=== PATIENT | female | born 1970 | race African-American/Black ===

== ENCOUNTER 2018-03-06 17:42 | Emergency (ER) | payer BC ==
[~2018-03-06] VITALS: Ht 162.6 cm; Wt 82.6 kg
[~2018-03-06 17:42] MED LIST: CIPROFLOXACIN500 M1 PO; IBUPROFEN 600600 M1 PO; MACROBID 100 M100 M1 PO; MEDROL DOSPAK21 TAB PO; NOHOMEMEDICATIONS; NORCO 5-325 TA1 EACH PO; PHENERGAN 25 MG25 M1 PO; TRAMADOL 50 MG50 MG PO; ZOFRAN ODT4 MG PO
[2018-03-06 19:14] LABS: ABSOLUTE NEUTROPHILS 5.6 thou/uL (1.4-8.2); BASOPHILS 0.8 % (0.0-2.0); EOSINOPHILS 3.1 % (0.0-3.0); HEMATOCRIT 32.3 % (37.0-47.0); HEMOGLOBIN 10.3 gm/dL (12.0-15.0); LYMPHOCYTES 22.4 % (24.0-44.0); MCH 21.3 pg (26.0-34.0); MCHC 31.8 g/dL (28.0-37.0); MCV 67.2 fL (80.0-100.0); MONOCYTES 7.8 % (1.0-8.0); PLATELET COUNT 308 thou/uL (150-400); POLYS 65.9 % (36.0-66.0); RDW 17.5 % (10.5-14.5); WBC 8.6 thou/uL (4.0-11.0)
[2018-03-06 19:25] LABS: CALCIUM 8.6 mg/dL (8.5-10.1); CREATININE 0.6 mg/dL (0.6-1.0); POTASSIUM 3.4 mmol/L (3.5-5.1)
[2018-03-06 19:43] LABS: URINE BILIRUBIN NEGATIVE (Negative); URINE BLOOD TRACE (Negative); URINE CLARITY CLEAR; URINE COLOR YELLOW; URINE GLUCOSE-RANDOM* NEGATIVE (Negative); URINE KETONES NEGATIVE (Negative); URINE PROTEIN (DIPSTICK) NEGATIVE (Negative); URINE UROBILINOGEN 0.2 E.U./dl (0.2-1.0)
[2018-03-06 19:45] LABS: ANISOCYTOSIS 1+; HYPOCHROMASIA 1+; MICROCYTES 1+
[2018-03-06 19:46] LABS: OVALOCYTES OCCASIONAL
[2018-03-06 19:47] LABS: URINE LEUKOCYTES-REFLEX 1+ (Negative); URINE NITRITE-REFLEX POSITIVE (Negative)
[2018-03-06 19:54] LABS: BACTERIA-REFLEX >30 Many /HPF (None Seen); CASTS None Seen /LPF (None Seen); CRYSTALS None Seen /LPF (None Seen); MUCUS >6 Heavy strn/LPF (None Seen); SQUAMOUS >10 Many /LPF (0-3); URINE RBC 0-2 Rare /HPF (0-2)
[2018-03-06] MEDS ORDERED: SENNA-DOCUSATE1 EACH PO (21:14)
[2018-03-06] MEDS ORDERED: BACTRIM DS TAB1 EACH PO (21:14)
[2018-03-06] MEDS ORDERED: NORCO 5-325 TA1 EACH PO (21:14)
[2018-03-06] MEDS ORDERED: IBUPROFEN 600600 M1 PO (21:14)
[2018-03-07 00:48] VITALS: BP 126/63
== END 2018-03-07 00:54 | disposition home or self-care (01) ==
LOC: ER 17:42
PROVIDERS: Emergency Medicine
DX: D25.9 Leiomyoma of uterus, unspecified (principal)